=== PATIENT | female | born 1960 | race Caucasian/White ===

== ENCOUNTER 2019-01-05 10:54 | Inpatient (IN) | payer MEDICARE, OTHER ==
--- NOTE | 2019-01-05 11:49 | RAD ---
RIGHT KNEE 4 VIEWS: Date: 01/05/19 HISTORY: Right knee pain. Fall. FINDINGS/IMPRESSION: Degenerative changes are present. No fracture or dislocation is seen involving the visualized portion s of the femur, tibia, and fibula. The patella on the lateral view is not satisfactorily visualized. POS: [facility]
--- NOTE | 2019-01-05 12:21 | RAD ---
RIGHT HIP TWO VIEWS: History: Fall. Right hip injury. FINDINGS: Joint space is preserved. Slight flattening of the femoral head. Subcortical sclerosis of the acetabu lum. Ring osteophyte of the femoral head. No acute fracture, dislocation, or aggressive osseous erosi ons. IMPRESSION: Degenerative changes right hip. No acute osseous abnormalities are demonstrated. POS: [facility]
[2019-01-05] MEDS ORDERED: Ketorolac Tromethamine 30 MG/ML VIAL ONE (12:32)
--- NOTE | 2019-01-05 14:13 | RAD ---
3 VIEWS RIGHT FORELEG: Date: 01/05/19 INDICATION: Fall with right knee pain. FINDINGS: There is a spiral fracture involving the distal tibia and fibula. No additional fracture is evident. IMPRESSION: Spiral fracture of the distal tibia and fibula. Dedicated right ankle radiographs are recommended. POS: [facility]
--- NOTE | 2019-01-05 15:07 | CT ---
CT PELVIS NONCONTRAST: Date: 01/05/19 Time: 1406 hours HISTORY: 58-year-old female with traumatic pelvic pain after fall. FINDINGS: There is no evidence of acute fracture. No dislocation. Moderate DJD at right hip joint. Mild DJD at left hip joint. Bilateral facet DJD at lower lumbar spine. No intrapelvic free fluid or extrapelvic h ematoma. IMPRESSION: 1. No evidence of acute fracture. 2. Moderate osteoarthrosis of the right hip. 3. Lower lumbar spondylosis consisting of facet osteoarthrosis, and bilateral neural foraminal steno sis at L4-5. POS: [facility]
--- NOTE | 2019-01-05 15:46 | RAD ---
RADIOGRAPH RIGHT ANKLE 3 VIEWS: Date; 01/05/19 Time: 1511 hours HISTORY: 58-year-old female status post acute traumatic injury to the ankle after fall. FINDINGS: There is a mildly comminuted spiral fracture of the distal tibia, from the distal diaphysis through t he metaphysis, with mild, approximately 10-15% bone width posterolateral displacement of the distal f ragment. It does not reach the tibial plafond. There is a nondisplaced spiral fracture of the distal fibular metaphysis. There is no dislocation or subluxation of the tibiotalar joint. Talar dome is mariann ntained. IMPRESSION: 1. Acute, traumatic, mildly displaced, spiral, comminuted fracture of the distal tibial metadiaphysi s. 2. Acute, traumatic, nondisplaced Erazo Class B fracture of the lateral malleolus. POS: [facility]
[2019-01-05 16:07] LABS: #Basophils 0.1 thou/uL (0.0-0.2); #Lymphocytes 1.3 thou/uL (1.20-3.40); #Monocytes 0.6 thou/uL (0.11-0.59); %Basophils 0.7 % (0.0-1.0); %Eosinophils 0.1 % (0.0-10.0); %Lymphocytes 9.2 % (21.0-51.0); %Monocytes 4.2 % (0.0-10.0); %Neutrophils 85.8 % (42.0-75.0); Hemoglobin 14.9 g/dL (12.0-16.0); Mean Corpuscular HGB CONC 32.8 g/dL (32.0-36.0); Mean Corpuscular Hemoglobin 33.1 pg (27.0-31.0); Mean Platelet Volume 6.7 fL (7.4-10.4); Platelet Count 414 thou/uL (130-400); RBC Distribution Width 12.7 % (11.5-14.5); Red Blood Cell (RBC) Count 4.49 mill/uL (4.20-5.40)
[2019-01-05 16:28] LABS: ALT (SGPT) 26 U/L (8-55); AST (SGOT) 40 U/L (5-34); Albumin 3.9 g/dL (3.5-5.0); Alkaline Phosphatase 92 U/L (40-150); Anion Gap 16 mmol/L (10-20); BUN (Urea Nitrogen) 8 mg/dL (9.8-20.1); Bilirubin, Total 0.4 mg/dL (0.2-1.2); Calc. Creatinine Clearance 0 mL/min (70-130); Calcium 9.6 mg/dL (7.8-10.44); Carbon Dioxide 24 mmol/L (22-29); Chloride 102 mmol/L (98-107); Estimated GFR-MDRD 78; Globulin 3.9 g/dL (2.4-3.5); Glucose 101 mg/dL (70-105); Potassium 4.9 mmol/L (3.5-5.1); Protein, Total 7.8 g/dL (6.0-8.3); Sodium 137 mmol/L (136-145)
[2019-01-05] MEDS ORDERED: Ondansetron ODT 4 MG TAB PO PRN (16:49)
[2019-01-05] MEDS ORDERED: Dextrose 50% Abboject 50 ML SYRINGE SLOW IVP PRN (16:49)
[2019-01-05] MEDS ORDERED: Morphine 4 MG/ML VIAL SLOW IVP PRN (16:49)
[2019-01-05] MEDS ORDERED: Ondansetron PF 4 MG/2 ML Vial IVP PRN (16:49)
[2019-01-05] MEDS ORDERED: Dextrose 5% in Water 1,000 ML IV PRN (16:49)
[2019-01-05] MEDS ORDERED: hydrALAZINE 20 MG/ML VIAL SLOW IVP PRN (16:49)
[2019-01-05] MEDS ORDERED: traMADol HCl 50 MG TAB PO PRN (16:59)
--- NOTE | 2019-01-05 17:55 | HP ---
HISTORY OF PRESENT ILLNESS: This is a 58-year-old female who was walking outside with her sister when she stepped in a hole and fell. The patient was taken by ambulance to the emergency room, was evaluated to have a right spiral tib-fib fracture. The patient had no loss of consciousness. Denied any other injuries. The patient with severe dementia history and Down syndrome history. Has been living with her sister who cares for her. Sister states that the patient has cognitive ability of approximately 2-year-old. The patient denies getting weak, dizzy, or having chest pain prior to falling. Initially, the patient complained of right hip pain and right knee pain. Dr. Tyler, ER physician requested Trauma Services to admit the patient. Dr. Mac has been consulted and plans to take the patient to the OR tomorrow around noon. PAST MEDICAL HISTORY: Dementia, Down syndrome, sick sinus syndrome with pacemaker, epilepsy. PAST SURGICAL HISTORY: Pacemaker and cataract surgery. SOCIAL HISTORY: Denies alcohol, drug use, or smoking history. ALLERGIES: CIPRO. CURRENT MEDICATIONS: Sister reports CBT which has kept her seizure-free. Melatonin at night. REVIEW OF SYSTEMS: Ten-point review of systems is negative unless otherwise stated in the HPI. PHYSICAL EXAMINATION: VITAL SIGNS: Temperature 98.0, respirations 16, blood pressure 116/79, pulse 63 , and SpO2 of 96% on room air. GENERAL: The patient is awake, alert, appears in no distress. HEENT: Head is normocephalic and atraumatic. NECK: Normal range of motion. Trachea midline. No cervical tenderness. RESPIRATORY: No respiratory distress. Bilateral breath sounds clear. Symmetrical chest rise. CARDIOVASCULAR: Regular rate and rhythm. No murmurs noted. ABDOMEN: Soft, nontender, nondistended. Active bowel sounds. NEUROLOGIC: Oriented to person and place. No focal deficits. EXTREMITIES: Splint right leg, distal pules bilateral. No pedal edema. LABORATORY DATA: WBC 14.0, RBC 4.49, hemoglobin 14.9, hematocrit 45.2, platelets 414. Sodium 137, potassium 4.9, chloride 102, carbon dioxide 24, BUN 8, creatinine 0.76, estimated GFR 78, glucose 101, calcium 9.6, AST 40, ALT 26, alkaline phosphatase 92, globulin 3.9, ratio 1.0. DIAGNOSTICS: X-ray tib-fib shows spiral fracture in distal tibia and fibula. Knee x-ray, no fracture or dislocation. Positive for degenerative changes. Pelvis CT, no evidence of acute fracture. IMPRESSION: 1. Ground level fall. 2. Right distal spiral tib-fib fracture. 3. Acute traumatic pain. 4. History of dementia. 5. History of epilepsy. 6. History of Down syndrome. PLAN: Admit the patient to the surgical ortho floor. Place the patient n.p.o. after midnight. We will control the patient's pain. We will order a rehab screen as the patient will need skilled rehab. PT to eval and treat after OR. This patient will be discussed with the attending trauma surgeon after this dictation. Job ID: [id number] [facility]
[2019-01-05 18:18] VITALS: BMI 26.5
[2019-01-05] MEDS: Ibuprofen 600 MG TAB PO SCH ×2 (18:47→23:12)
[2019-01-05] MEDS: Acetaminophen 325 MG TAB PO SCH ×2 (18:47→23:12)
[2019-01-05] MEDS: Melatonin 3 MG TAB PO SCH (20:39)
[2019-01-05] MEDS: Sodium Chloride 0.9% 1,000 ML IV SCH (20:40)
[2019-01-05] MEDS: Famotidine/PF 20 mg/2ml Vial SLOW IVP SCH (20:45)
--- NOTE | 2019-01-05 20:47 | PRG ---
DATE OF SERVICE: 01/05/2019 SUBJECTIVE: Ms. Tapia is a 58-year-old woman with history of Down syndrome. The patient apparently fell from ground level position earlier today, sustaining a right distal tib-fib spiral fracture. She is awake and alert. Her adult sister is at bedside. The patient denies any problems. Pain control is adequate as confirmed by her sister. She just finished her dinner. OBJECTIVE: VITAL SIGNS: Vital signs currently includes blood pressure 125/62, pulse 70, respiratory rate is 18, temperature 97.4 degrees Fahrenheit, and oxygen saturation 100% on room air. ASSESSMENT AND PLAN: I have reviewed the history and physical as recorded by Maddy Lee, trauma nurse practitioner. I agree with the findings and plan for today. The patient is certainly hemodynamically stable to proceed with Orthopedic Surgery tomorrow for surgical fixation of this spiral fracture. Chemical VTE prophylaxis will be initiated following completion of surgery tomorrow. Job ID: [id number]
[2019-01-06] MEDS ORDERED: Ketorolac Tromethamine 15 MG/ML VIAL IVP PRN (00:01)
[2019-01-06 07:01] LABS: #Basophils 0.1 thou/uL (0.0-0.2); #Lymphocytes 1.5 thou/uL (1.20-3.40); #Monocytes 0.5 thou/uL (0.11-0.59); #Neutrophils 3.3 thou/uL (1.40-6.50); %Basophils 1.1 % (0.0-1.0); %Eosinophils 0.6 % (0.0-10.0); %Monocytes 8.7 % (0.0-10.0); %Neutrophils 61.6 % (42.0-75.0); Hemoglobin 13.3 g/dL (12.0-16.0); Mean Corpuscular HGB CONC 33.4 g/dL (32.0-36.0); Mean Corpuscular Hemoglobin 33.9 pg (27.0-31.0); Mean Platelet Volume 6.4 fL (7.4-10.4); Platelet Count 305 thou/uL (130-400); RBC Distribution Width 12.6 % (11.5-14.5); Red Blood Cell (RBC) Count 3.92 mill/uL (4.20-5.40); White Blood Cell (WBC) Count 5.4 thou/uL (4.8-10.8)
[2019-01-06 07:15] LABS: ALT (SGPT) 17 U/L (8-55); AST (SGOT) 21 U/L (5-34); Albumin 3.5 g/dL (3.5-5.0); Alkaline Phosphatase 80 U/L (40-150); Anion Gap 12 mmol/L (10-20); BUN (Urea Nitrogen) 9 mg/dL (9.8-20.1); Bilirubin, Total 0.6 mg/dL (0.2-1.2); Calc. Creatinine Clearance 68 mL/min (70-130); Calcium 8.9 mg/dL (7.8-10.44); Carbon Dioxide 25 mmol/L (22-29); Chloride 102 mmol/L (98-107); Estimated GFR-MDRD 77; Globulin 2.8 g/dL (2.4-3.5); Glucose 112 mg/dL (70-105); Potassium 3.7 mmol/L (3.5-5.1); Protein, Total 6.3 g/dL (6.0-8.3); Sodium 135 mmol/L (136-145)
[2019-01-06] MEDS: Polyethylene Glycol 3350 17 GM Packet PO SCH (07:26)
[2019-01-06] MEDS: Sodium Chloride 0.9% 1,000 ML IV SCH ×2 (07:26→20:36)
[2019-01-06] MEDS ORDERED: CEFAZOLIN 2 GM/50 ML-DEXTROSE 2 GM in Premix Bag 1 BAG IVPB SCH (07:30)
[2019-01-06] MEDS ORDERED: CEFAZOLIN/Water 2 GM/20 ML SYRINGE SLOW IVP SCH ×2 (07:30→15:49)
[2019-01-06] MEDS: Famotidine/PF 20 mg/2ml Vial SLOW IVP SCH ×2 (08:54→21:09)
[2019-01-06] MEDS ORDERED: Potassium Chloride 10 MEQ in Premix Bag 1 BAG IVPB SCH (09:15)
[2019-01-06 09:49] LABS: Magnesium 1.9 mg/dL (1.6-2.6); Phosphorus 3.8 mg/dL (2.3-4.7)
[2019-01-06] MEDS: Acetaminophen 325 MG TAB PO SCH ×2 (11:15→17:09)
[2019-01-06] MEDS ORDERED: CEFAZOLIN 2 GM/50 ML BAG ONE (11:33)
[2019-01-06] MEDS ORDERED: Scopolamine 1.5 mg/72 hour Patch ONE (11:48)
[2019-01-06] MEDS ORDERED: Fentanyl 100 MCG/2 ML VIAL ONE ×2 (12:01→15:05)
[2019-01-06] MEDS ORDERED: PHENYLEPHRINE-NS 100 MCG/ML 10 ML SYRINGE ONE (13:15)
[2019-01-06] MEDS ORDERED: Dexamethasone 20 MG/5 ML VIAL ONE (13:15)
[2019-01-06] MEDS ORDERED: PROPOFOL 200 MG/20 ML VIAL ONE (13:15)
[2019-01-06] MEDS ORDERED: Ondansetron PF 4 MG/2 ML Vial ONE (13:15)
[2019-01-06] MEDS: Ibuprofen 600 MG TAB PO SCH ×2 (13:36→21:09)
--- NOTE | 2019-01-06 15:42 | RAD ---
RIGHT FORELEG 2 VIEWS: HISTORY: ORIF of right leg. FINDINGS: Since the comparison examination, there has been interval open reduction internal fixation of the dis jennifer tibia and fibula fractures. Fracture alignment is near anatomic. Instrumentation projects in th e expected position. IMPRESSION: Open reduction internal fixation of the right distal tibia and fibula fracture. POS: [facility]
[2019-01-06] MEDS ORDERED: Ketorolac Tromethamine 30 MG/ML VIAL IVP PRN (17:30)
[2019-01-06] MEDS ORDERED: Sodium Chloride 0.9% 1,000 ML IV SCH (17:45)
[2019-01-06] MEDS ORDERED: traMADol HCl 50 MG TAB PO SCH (18:00)
[2019-01-06] MEDS: Melatonin 3 MG TAB PO SCH (21:08)
[2019-01-06] MEDS: Senokot S 8.6-50 MG TAB PO SCH (21:09)
[2019-01-06] MEDS: CEFAZOLIN 2 GM/50 ML-DEXTROSE 2 GM in Premix Bag 1 BAG IVPB SCH (21:09)
[2019-01-06] MEDS: Magnesium Oxide 400 MG TAB PO SCH (21:09)
--- NOTE | 2019-01-06 21:33 | OP ---
DATE OF PROCEDURE: 01/06/2019 PREOPERATIVE DIAGNOSES: 1. Right distal tibia fracture. 2. Right distal fibular fracture. POSTOPERATIVE DIAGNOSES: 1. Right distal tibia fracture. 2. Right distal fibular fracture. PROCEDURES: 1. Open reduction and internal fixation, right distal tibia. 2. Percutaneous screw stabilization of right distal fibula. ANESTHESIA: General. ACADEMIC SUPPORT DIRECTOR: Sea. TOURNIQUET TIME: 61 minutes at 300 mmHg. IMPLANT: Synthes system was used with a 6 hole 2.7/3.5 mm variable angle LCP distal medial tibial plate with a combination of 2.7 mm variable angle locking screws, 3.5 mm cortical screws and a single 4.0 mm cortical screw for the fibula. COMPLICATIONS: None. DRAINS: None. SPECIMEN: None. OUTCOME: Near-anatomic alignment. INDICATIONS: The patient is a pleasant 58-year-old lady with Down syndrome, who was walking in the field with her sister when she tripped and fell, sustained a twisting injury to the right lower extremity. X-rays in the emergency room demonstrated an oblique fracture of the distal tibia with some displacement and a nondisplaced oblique fracture of the distal fibula. After discussion with family including risks and benefits, we decided to proceed with open reduction and internal fixation. Informed consent has been obtained. I believe all questions answered. DESCRIPTION OF PROCEDURE: The patient was brought to the operating room and a time-out performed followed by induction of general anesthesia. The patient was then positioned supine on the OR table and a sterile prep and drape was performed of the right lower extremity. The limb was then exsanguinated with Esmarch bandage, tourniquet inflated to 300 mmHg. Next, a vertical incision was made from the tip of the medial malleolus proximally. After skin was sharply incised, dissection was carried down bluntly. The saphenous vein was identified and reflected anteriorly. Next, using minimal subperiosteal dissection, the fracture extension to the medial side of the tibia was identified. This was then reduced manually. A 6 hole 2.7/3.5 variable angle distal medial tibial plate was then inserted into the wound. Once appropriately positioned, it was stabilized with a single 3.5 mm cortical screw in the shaft of the plate proximal to the fracture. This was then followed by placement of 4 locking screws in the distal tibial metaphysis. An additional 3.5 mm screw was passed longitudinally across the fracture into the lateral fragment of the fracture and then additional cortical screws were placed proximally stabilizing the plate to the shaft. At this time, AP, lateral and mortise views of the ankle showed near anatomical alignment. The distal fibula was essentially nondisplaced and as such, we opted to proceed with intramedullary screw stabilization of this fracture. Using C-arm guidance, a small stab wound was made distal to the tip of the lateral malleolus. Next, a drill was passed from this tip of the lateral malleolus up the shaft without difficulty. Next, a 16-mm screw was passed from the starting hole up into the distal fibular shaft, getting good compression across the fracture. At the completion of this, final x-ray images of the ankle were obtained. The wounds were irrigated with bulb syringe, then closed in layers with 0 Vicryl, deep 2-0 Vicryl, and nylon for the skin. Xeroform gauze, Webril, and fiberglass splint was applied to the leg. Tourniquet was let down with total time of 61 minutes. The patient was transferred to recovery room in stable condition. There were no complications. She tolerated the procedure well. Job ID: [id number]
--- NOTE | 2019-01-06 21:48 | CON ---
DATE OF CONSULTATION: BRIEF HISTORY OF PRESENT ILLNESS: The patient is a 58-year-old female with history of Down syndrome, who was walking in the field with her sister when she stepped in a hole, fell and twisted her right ankle. Upon evaluation in the emergency department, she was found to have an oblique fracture of the distal tibia with fracture of the distal fibula as well. There was no loss of consciousness and no other injuries. As such, Orthopedic consultation was requested. The patient being admitted to the Trauma Service. PAST MEDICAL HISTORY: Remarkable for Down syndrome, sick sinus syndrome, and epilepsy. PAST SURGICAL HISTORY: Includes pacemaker placement as well as cataract surgery. SOCIAL HISTORY: Denies alcohol, drug use, or cigarettes. MEDICATIONS: Melatonin at night for sleep. ALLERGIES: TO CIPROFLOXACIN. FAMILY HISTORY: Noncontributory. REVIEW OF SYSTEMS: Denies recent fevers, chills, or sweats. Denies chest pain or shortness of breath. Denies numbness or tingling in the lower extremity. PHYSICAL EXAMINATION: VITAL SIGNS: On admission in the emergency room, the patient was found to have a blood pressure of 94/72, heart rate of 60, respiratory rate of 16, and temperature 98.1 degrees Fahrenheit. GENERAL: She is in mild distress, but otherwise lying still in her emergency room bed with her sister at bedside. HEENT: Atraumatic and normocephalic. NECK: Supple. HEART: Shows a regular rate and rhythm with no murmurs noted. CHEST: Clear to auscultation with good breath sounds bilaterally. ABDOMEN: Benign. PELVIS: Stable. EXTREMITIES: Remarkable for bilateral upper extremities. They are atraumatic. Left lower extremity also atraumatic. Right lower extremity with a short-leg splint in place. She has pain to palpation at the distal tibia. She is wiggling her toes and appears to have normal sensation dorsally and on the plantar surface of the foot. The knee and hip appear atraumatic on this involved right side. LABORATORY DATA: White count of 16, hematocrit 45.2, and 414,000 platelets. X-RAYS: Right knee x-ray normal. Right hip x-ray normal. AP pelvis negative. Right tib-fib remarkable for a distal tibia fracture with an oblique and mild spiral component to it extending down to the very distal end of the tibial metaphysis but not entering the joint and there was found to be a minimally if not nondisplaced fracture of the distal fibula. Followup ankle x-rays confirmed the above findings. ASSESSMENT: The patient is a 58-year-old lady with Down syndrome, status post ground level trip and fall sustaining a distal tibia fracture with nondisplaced lateral malleolus. PLAN: At this time, the patient will be admitted to the Trauma Service. We will keep her n.p.o. after midnight with plans to take her to the operating room tomorrow for open reduction and internal fixation of the distal tibia and probable stabilization of the fibula as well. Today, risks and benefits were discussed with the patient's sister. Risks include, but are not limited to bleeding, infection, nerve injury, DVT, PE, malunion, nonunion, loss of fixation, loss of limb or life. They appear to understand and do wish to proceed. Consent will be obtained prior to surgery. Job ID: [id number]
[2019-01-07] MEDS: Acetaminophen 325 MG TAB PO SCH ×5 (00:04→22:52)
[2019-01-07] MEDS ORDERED: Potassium Chloride 10 MEQ in Premix Bag 1 BAG IVPB SCH ×2 (00:30→01:00)
[2019-01-07] MEDS ORDERED: Potassium Chloride 20 MEQ in Premix Bag 1 BAG IVPB SCH (01:30)
--- NOTE | 2019-01-07 03:56 | PRG ---
DATE OF SERVICE: 01/06/2019 SUBJECTIVE: This is a 58-year-old female status post ground-level fall. The patient is postop day #0 for repair of right distal spiral tib-fib fracture. The patient just returned from PACU. The patient's sister is at bedside. The patient does not appear to be in any pain at this time. The patient with limited verbal response at this time and appears slightly anxious. Nursing staff and sister reassuring patient. OBJECTIVE: VITAL SIGNS: Temperature 97.8, pulse 64, respirations 12, SpO2 of 99% on room air, blood pressure 111/68. GENERAL: The patient is awake, alert, follows some simple commands. No distress at this time. HEENT: Head is atraumatic and normocephalic. RESPIRATORY: Bilateral breath sounds clear. No respiratory distress. Symmetrical chest rise. CARDIOVASCULAR: Regular rate and rhythm. EXTREMITIES: The patient with a posterior leg splint to the right. The patient moves all extremities. LABORATORY DATA: WBC 5.4, RBC 3.92, hemoglobin 13.3, hematocrit 39.8, platelets 305. Sodium 135, potassium 3.7, chloride 102, BUN 9, creatinine 0.77, estimated GFR 77, glucose 112, calcium 8.9, phosphorus 3.8, magnesium 1.9, AST 21, ALT 17. DIAGNOSTICS: Tib-fib x-ray impression; open reduction internal fixation of the right distal tibia and fibula fracture. IMPRESSION: 1. Ground-level fall. 2. Postoperative day #0, open reduction external fixation right distal tibia fibula. 3. Acute traumatic pain. 4. History of dementia. 5. History of epilepsy. 6. History of Down syndrome. PLAN: We will start the patient on clear liquids and place the patient on a pain regimen. We will discontinue tramadol as it can increase the seizure threshold. Rehab screen and PT has been consulted. We will replace the patient's electrolytes. We will keep the patient on a low maintenance IV fluid overnight. We will repeat labs in the morning. Soft mittens on hands to prevent patient from pulling out IV. The patient has been discussed with Dr. Govea, who agrees with the plan. Job ID: [id number] [facility]
[2019-01-07] MEDS: CEFAZOLIN 2 GM/50 ML-DEXTROSE 2 GM in Premix Bag 1 BAG IVPB SCH ×2 (05:55→11:44)
[2019-01-07] MEDS: Ibuprofen 600 MG TAB PO SCH ×3 (06:01→22:52)
[2019-01-07 06:37] LABS: #Lymphocytes 1.3 thou/uL (1.20-3.40); #Monocytes 0.5 thou/uL (0.11-0.59); #Neutrophils 8.2 thou/uL (1.40-6.50); %Basophils 0.2 % (0.0-1.0); %Eosinophils 0.1 % (0.0-10.0); %Monocytes 5.2 % (0.0-10.0); %Neutrophils 81.5 % (42.0-75.0); Hemoglobin 13.2 g/dL (12.0-16.0); Mean Corpuscular HGB CONC 33.3 g/dL (32.0-36.0); Mean Corpuscular Hemoglobin 33.7 pg (27.0-31.0); Mean Platelet Volume 6.5 fL (7.4-10.4); Platelet Count 335 thou/uL (130-400); RBC Distribution Width 12.7 % (11.5-14.5); Red Blood Cell (RBC) Count 3.92 mill/uL (4.20-5.40); White Blood Cell (WBC) Count 10.1 thou/uL (4.8-10.8)
[2019-01-07 06:50] LABS: ALT (SGPT) 15 U/L (8-55); AST (SGOT) 20 U/L (5-34); Albumin 3.6 g/dL (3.5-5.0); Alkaline Phosphatase 75 U/L (40-150); Anion Gap 10 mmol/L (10-20); BUN (Urea Nitrogen) 6 mg/dL (9.8-20.1); Bilirubin, Total 0.5 mg/dL (0.2-1.2); Calc. Creatinine Clearance 63 mL/min (70-130); Calcium 9.1 mg/dL (7.8-10.44); Carbon Dioxide 25 mmol/L (22-29); Chloride 104 mmol/L (98-107); Estimated GFR-MDRD 72; Globulin 2.9 g/dL (2.4-3.5); Glucose 111 mg/dL (70-105); Magnesium 1.7 mg/dL (1.6-2.6); Potassium 4.4 mmol/L (3.5-5.1); Protein, Total 6.5 g/dL (6.0-8.3); Sodium 135 mmol/L (136-145)
[2019-01-07 06:53] LABS: Phosphorus 2.8 mg/dL (2.3-4.7)
[2019-01-07] MEDS ORDERED: Aspirin 81 mg Enteric Coated Tablet PO SCH (09:00)
[2019-01-07] MEDS: Famotidine/PF 20 mg/2ml Vial SLOW IVP SCH (09:00)
[2019-01-07] MEDS: Senokot S 8.6-50 MG TAB PO SCH ×2 (09:00→20:10)
[2019-01-07] MEDS: Polyethylene Glycol 3350 17 GM Packet PO SCH (09:00)
[2019-01-07] MEDS: Aspirin 81 mg Enteric Coated Tablet PO SCH ×2 (09:00→20:10)
[2019-01-07] MEDS: Magnesium Oxide 400 MG TAB PO SCH ×2 (09:00→20:10)
--- NOTE | 2019-01-07 09:02 | EKG ---
Test Reason : PREOP Blood Pressure : / mmHG Vent. Rate : 060 BPM Atrial Rate : 060 BPM P-R Int : 142 ms QRS Dur : 092 ms QT Int : 460 ms P-R-T Axes : 090 062 058 degrees QTc Int : 460 ms Electronic atrial pacemaker RSR' or QR pattern in V1 suggests right ventricular conduction delay Borderline ECG No previous ECGs available Confirmed by DR. Ally RAM ([id number]) on 01/07/2019 9:02:14 AM Referred By: DEJUAN Confirmed By:DR. Alyl RAM
--- NOTE | 2019-01-07 15:00 | PRG ---
DATE OF SERVICE: 01/07/2019 SUBJECTIVE: The patient was seen this morning lying in bed, was just waking up this morning. Family at bedside reported the patient's pain was better controlled and was able to sleep later on during the night. She has been on a regular diet and has been tolerating that well. Denies nausea, vomiting, diarrhea. Nursing did report that the patient received nearly double the amount of potassium ordered yesterday due to a documentation error. Morning labs indicate potassium within normal limits. Otherwise, no acute overnight events. PHYSICAL EXAMINATION: VITAL SIGNS: Temperature 97.9, pulse 60, respirations 12, oxygen saturation 98% on room air, blood pressure 117/77. GENERAL: Alert and well-appearing middle-aged female, lying in bed with no acute signs of distress. NEURO: Alert and oriented at baseline. Gross motor and sensation intact. Pupils equal, round, reactive to light. PULMONARY: No signs of acute distress. Equal chest rise and fall. Lung ramirez clear bilaterally. HEART: Regular rate and rhythm. No murmurs, gallops, or rubs. GI: Abdomen is soft, nontender, nondistended with positive bowel sounds. EXTREMITIES: Gross motor and sensation intact in all 4 extremities. 2+ pulses in all 4 extremities. No swelling noted. Surgical dressing to right lower extremity clean, dry, and intact. LABORATORY FINDINGS: White count 11.1, hemoglobin 13.2, hematocrit 39.7, platelets 335. Sodium 135, potassium 4.4, chloride 104, carbon dioxide 25, BUN 6, creatinine 0.82, glucose 111, phos 2.8, magnesium 1.7. DIAGNOSTIC FINDINGS: There are no diagnostic findings to report. ASSESSMENT: 1. Status post mechanical fall from standing. 2. Right tib-fib fracture. 3. Hypophosphatemia. 4. Hypomagnesemia. 5. Hyponatremia. 6. Acute traumatic pain. PLAN: The patient will receive a repeat serum sodium lab draw this afternoon at 3:00 p.m. We will discontinue normal saline and monitor hyponatremia for now. We will replace magnesium and phosphorus today. We will continue pain management with Tylenol and ibuprofen. The patient's family at bedside reports she is more at her baseline mentation today than previously was. We will continue with a regular diet. Aspirin 81 mg b.i.d. for DVT prophylaxis as well as SCDs. We will continue physical and occupational therapy today. The patient was seen and examined by Dr. Govea and I today during morning rounds. Job ID: [id number]
[2019-01-07] MEDS: Melatonin 3 MG TAB PO SCH (20:09)
[2019-01-07] MEDS: Famotidine 20 MG TAB PO SCH (20:09)
[2019-01-08 04:45] LABS: #Basophils 0.1 thou/uL (0.0-0.2); #Eosinphils 0.1 thou/uL (0.0-0.7); #Lymphocytes 1.7 thou/uL (1.20-3.40); #Monocytes 0.6 thou/uL (0.11-0.59); #Neutrophils 3.5 thou/uL (1.40-6.50); %Basophils 1.3 % (0.0-1.0); %Eosinophils 0.9 % (0.0-10.0); %Lymphocytes 28.1 % (21.0-51.0); %Monocytes 10.7 % (0.0-10.0); Hemoglobin 12.2 g/dL (12.0-16.0); Mean Corpuscular Hemoglobin 33.5 pg (27.0-31.0); Mean Platelet Volume 6.4 fL (7.4-10.4); Platelet Count 288 thou/uL (130-400); RBC Distribution Width 12.5 % (11.5-14.5); Red Blood Cell (RBC) Count 3.63 mill/uL (4.20-5.40); White Blood Cell (WBC) Count 5.9 thou/uL (4.8-10.8)
[2019-01-08 04:59] LABS: Anion Gap 11 mmol/L (10-20); BUN (Urea Nitrogen) 10 mg/dL (9.8-20.1); Calc. Creatinine Clearance 74 mL/min (70-130); Calcium 8.5 mg/dL (7.8-10.44); Carbon Dioxide 26 mmol/L (22-29); Chloride 101 mmol/L (98-107); Estimated GFR-MDRD 86; Glucose 106 mg/dL (70-105); Phosphorus 2.9 mg/dL (2.3-4.7); Sodium 134 mmol/L (136-145)
[2019-01-08] MEDS: Ibuprofen 600 MG TAB PO SCH ×3 (07:28→17:50)
[2019-01-08] MEDS: Acetaminophen 325 MG TAB PO SCH ×4 (07:28→23:19)
[2019-01-08] MEDS: Polyethylene Glycol 3350 17 GM Packet PO SCH (09:38)
[2019-01-08] MEDS: Aspirin 81 mg Enteric Coated Tablet PO SCH ×2 (09:39→20:49)
[2019-01-08] MEDS: Senokot S 8.6-50 MG TAB PO SCH ×2 (09:39→20:50)
[2019-01-08] MEDS: Magnesium Oxide 400 MG TAB PO SCH (09:40)
[2019-01-08] MEDS: Famotidine 20 MG TAB PO SCH ×2 (09:40→20:50)
[2019-01-08] MEDS ORDERED: Sodium Phosphate 15 MMOL in Sodium Chloride 0.9% 250 ML 250 ML IVPB SCH (11:00)
--- NOTE | 2019-01-08 12:03 | PRG ---
DATE OF SERVICE: 01/08/2019 SUBJECTIVE: The patient was seen this morning, lying in bed, with family at bedside. She was just starting to wake up during our evaluation. Family reported the patient was much less agitated today and was tolerating a regular diet. Pain was well controlled. Has not had a bowel movement yet, but has been urinating without difficulties. Denies nausea, vomiting, or diarrhea. PHYSICAL EXAMINATION: VITAL SIGNS: Temperature 97.6, pulse 61, respirations 14, oxygen saturation 99% on room air, and blood pressure 117/76. GENERAL: Alert and well-appearing middle-aged female, lying in bed, with no signs of acute distress. NEUROLOGIC: Alert and oriented at baseline. Gross motor and sensation intact. Pupils equal, round, and reactive to light. PULMONARY: No signs of acute distress. Equal chest rise and fall. Lung ramirez clear bilaterally. HEART: Regular rate and rhythm. No murmurs, gallops, or rubs. GI: Abdomen is soft, nontender, and nondistended with positive bowel sounds. EXTREMITIES: Gross motor and sensation intact in all 4 extremities, 2+ pulses in all extremities. No swelling noted. Surgical dressing to right lower extremity clean, dry, and intact. LABORATORY FINDINGS: White blood cell count 5.9, hemoglobin 12.2, hematocrit 36.8, and platelets 228. Sodium 134, potassium 4.0, chloride 101, carbon dioxide 26, BUN 10, creatinine 0.70, and glucose 106. Phos 2.9. Magnesium 2.0. DIAGNOSTIC FINDINGS: There are no diagnostic findings to report. ASSESSMENT: 1. Status post mechanical fall from standing. 2. Right tib-fib fracture status post repair. 3. Hypophosphatemia. 4. Constipation. 5. Hyponatremia. 6. Acute traumatic pain. PLAN: The patient will receive sodium phos replacement today for hyponatremia. We will continue current pain regimen as the patient appears to have better pain control than yesterday. If she does not have a bowel movement by tomorrow, we will order a suppository at that time. Family at bedside reports that she is much less agitated and mentation is at baseline. We will continue physical and occupational therapy as well as supportive care. The patient was seen and examined by Dr. Govea and Norma today during morning rounds. Job ID: [id number]
[2019-01-08] MEDS: Melatonin 3 MG TAB PO SCH (20:49)
[2019-01-09] MEDS ORDERED: Bisacodyl 10 MG SUPP PR SCH (07:15)
[2019-01-09 08:00] LABS: #Basophils 0.1 thou/uL (0.0-0.2); #Eosinphils 0.1 thou/uL (0.0-0.7); #Lymphocytes 1.3 thou/uL (1.20-3.40); #Monocytes 0.5 thou/uL (0.11-0.59); #Neutrophils 2.3 thou/uL (1.40-6.50); %Basophils 1.4 % (0.0-1.0); %Eosinophils 2.7 % (0.0-10.0); %Lymphocytes 30.3 % (21.0-51.0); %Neutrophils 53.5 % (42.0-75.0); Hemoglobin 12.9 g/dL (12.0-16.0); Mean Corpuscular HGB CONC 33.1 g/dL (32.0-36.0); Mean Corpuscular Hemoglobin 33.5 pg (27.0-31.0); Mean Platelet Volume 6.6 fL (7.4-10.4); Platelet Count 315 thou/uL (130-400); RBC Distribution Width 12.4 % (11.5-14.5); Red Blood Cell (RBC) Count 3.85 mill/uL (4.20-5.40); White Blood Cell (WBC) Count 4.2 thou/uL (4.8-10.8)
[2019-01-09 08:24] LABS: Anion Gap 12 mmol/L (10-20); BUN (Urea Nitrogen) 8 mg/dL (9.8-20.1); Calc. Creatinine Clearance 80 mL/min (70-130); Calcium 8.8 mg/dL (7.8-10.44); Carbon Dioxide 25 mmol/L (22-29); Chloride 101 mmol/L (98-107); Estimated GFR-MDRD Greater than 90; Glucose 100 mg/dL (70-105); Phosphorus 3.2 mg/dL (2.3-4.7); Sodium 134 mmol/L (136-145)
[2019-01-09] MEDS: Acetaminophen 325 MG TAB PO PRN ×2 (11:43→16:12)
[2019-01-09] MEDS: Ibuprofen 600 MG TAB PO PRN ×2 (11:43→20:41)
[2019-01-09] MEDS: Famotidine 20 MG TAB PO SCH ×2 (11:43→20:29)
[2019-01-09] MEDS: Aspirin 81 mg Enteric Coated Tablet PO SCH ×2 (11:43→20:29)
[2019-01-09] MEDS: Polyethylene Glycol 3350 17 GM Packet PO SCH (11:48)
[2019-01-09] MEDS: Senokot S 8.6-50 MG TAB PO SCH ×2 (11:48→20:49)
--- NOTE | 2019-01-09 16:07 | PRG ---
DATE OF SERVICE: 01/09/2019 SUBJECTIVE: The patient was seen this morning sitting up in a chair. Family at bedside reported the patient slept very well last night and mentation is at baseline. A suppository was given this morning and the patient had large bowel movement. She is also voiding without difficulty. Her pain is well controlled on p.r.n. Tylenol and ibuprofen. OBJECTIVE: VITAL SIGNS: Temperature 97.1, pulse 68, respirations 20, oxygen saturation 99% on room air, and blood pressure 124/76. GENERAL: Alert and well-appearing middle-aged female, sitting up in chair with no signs of acute distress. NEUROLOGIC: Alert and oriented at baseline, gross motor sensation intact. Pupils equal, round, and reactive to light. PULMONARY: No signs of acute distress. Equal chest rise and fall. Lung ramirez clear bilaterally. HEART: Regular rate and rhythm. No murmurs, gallops, or rubs. GI: Abdomen is soft, nontender, and nondistended with positive bowel sounds. EXTREMITIES: Gross motor and sensation intact in all 4 extremities. 2+ pulses in all extremities. No swelling noted. Surgical dressing to lower extremity clean, dry, and intact. LABORATORY FINDINGS: White blood cell count 4.2, hemoglobin 12.9, hematocrit 39, platelets 315. Sodium 134, potassium 4.0, chloride 101, carbon dioxide 25, BUN 8, creatinine 0.65, glucose 100, phos 3.2, and 2.0. DIAGNOSTIC FINDINGS: There are no diagnostic findings to report. ASSESSMENT: 1. Status post mechanical fall from standing. 2. Right tib-fib fracture, status post repair. 3. Hypophosphatemia. 4. Constipation, resolved. 5. Hyponatremia, persistent. 6. Acute traumatic pain. PLAN: The patient will receive phosphorus replacement today. She can continue her current pain regimen as well as her diet. The family at bedside reporting the patient is doing well and she is ready for discharge. She can likely go to her facility as early as tomorrow. She will continue to receive supportive care as well as physical and occupational therapy at this time. The patient was seen and examined by Dr. Espinal this morning during rounds. Job ID: [id number]
[2019-01-09] MEDS: Melatonin 3 MG TAB PO SCH (20:29)
[2019-01-10 06:50] LABS: Anion Gap 11 mmol/L (10-20); BUN (Urea Nitrogen) 6 mg/dL (9.8-20.1); Calc. Creatinine Clearance 80 mL/min (70-130); Calcium 8.6 mg/dL (7.8-10.44); Carbon Dioxide 23 mmol/L (22-29); Chloride 101 mmol/L (98-107); Estimated GFR-MDRD Greater than 90; Glucose 102 mg/dL (70-105); Magnesium 1.9 mg/dL (1.6-2.6); Phosphorus 3.4 mg/dL (2.3-4.7); Potassium 3.8 mmol/L (3.5-5.1); Sodium 131 mmol/L (136-145)
[2019-01-10] MEDS: Famotidine 20 MG TAB PO SCH (08:25)
[2019-01-10] MEDS: Aspirin 81 mg Enteric Coated Tablet PO SCH (08:27)
[2019-01-10] MEDS: Acetaminophen 325 MG TAB PO PRN (08:28)
[2019-01-10] MEDS: Senokot S 8.6-50 MG TAB PO SCH (10:01)
[2019-01-10] MEDS: Polyethylene Glycol 3350 17 GM Packet PO SCH (10:01)
[2019-01-10 12:17] VITALS: BP 106/68; TEMP 97.4
--- NOTE | 2019-01-10 16:16 | DIS ---
DATE OF ADMISSION: 01/05/2019 DATE OF DISCHARGE: 01/10/2019 ADMISSION DIAGNOSES: Status post ground level fall and right tib-fib fracture. DISCHARGE DIAGNOSES: Status post ground level fall and right tib-fib fracture. CONSULTING PHYSICIAN: Dr. Mac, Orthopedic surgery. PROCEDURES: ORIF of the right tib-fib. HOSPITAL COURSE: Ms. Tapia presented to the emergency department status post mechanical fall from standing when she stepped into a pothole. She has a history of Down syndrome, dementia, and epilepsy. She received an x-ray imaging, which demonstrated a right tib-fib fracture. Dr. Mac with Orthopedic surgery evaluated the patient and took her to the operating room the next day, where she received ORIF of the right tib-fib. Postoperatively, she had uncomplicated course and by the time of discharge, she was tolerating a regular diet. Pain was well controlled. She was urinating without difficulty and had a bowel movement. DISCHARGE DISPOSITION: [facility] facility in [place]. DISCHARGE CONDITION: Satisfactory. PHYSICAL EXAMINATION: VITAL SIGNS: Temperature 97.4, pulse 62, respirations 18, oxygen saturation 100% on room air, and blood pressure 106/68. GENERAL: Alert and well-appearing middle-aged female, sitting up in bed with no signs of acute distress. NEUROLOGIC: Alert and oriented at baseline. Gross motor and sensation intact. HEENT: Pupils equal, round, reactive to light. PULMONARY: No signs of acute distress. Equal chest rise and fall. Lung ramirez clear bilaterally. HEART: Regular rate and rhythm. No murmurs, gallops, or rubs. GASTROINTESTINAL: Abdomen is soft, nontender, nondistended. Positive bowel sounds. EXTREMITIES: Gross motor and sensation intact in all 4 extremities. 2+ pulses in all extremities. No swelling noted. Surgical dressing to lower extremity clean, dry, and intact. DISCHARGE INSTRUCTIONS: The patient was discharged to a [facility] facility on a regular diet with Tylenol and ibuprofen as needed for pain. She is nonweightbearing on the right lower extremity. She is going to receive PT and OT at her [facility] facility. She can have a regular diet. DISCHARGE MEDICATIONS: Include; 1. Tylenol. 2. Aspirin. 3. CBD extract. 4. Famotidine. 5. Ibuprofen. 6. Melatonin. 7. MiraLAX. 8. Senokot. FOLLOWUP APPOINTMENTS: She will follow up with Dr. Mac in 14 days. This is merely a summary of the patient's hospitalization. For full details, please see her medical record in its entirety. Job ID: [id number]
== END 2019-01-10 12:58 | DRG 493 ==
LOC: ERS 10:54 → SURG A 15:49
PROVIDERS: ADMIT Orthopaedic Surgery; ATTEND Orthopaedic Surgery
PROC: 0QSG04Z Reposition Right Tibia with Internal Fixation Device, Open Approach (ICD-10-PCS; principal; 2019-01-06)
PROC: 0QS Lower Bones, Reposition (ICD-10-PCS; 2019-01-06)
DX: S82.301A Unspecified fracture of lower end of right tibia, initial encounter for closed fracture (principal); E87.1 Hypo-osmolality and hyponatremia; S82.831A Other fracture of upper and lower end of right fibula, initial encounter for closed fracture; G89.11 Acute pain due to trauma; E83.39 Other disorders of phosphorus metabolism; E83.42 Hypomagnesemia; F03.90 Unspecified dementia, unspecified severity, without behavioral disturbance, psychotic disturbance, mood disturbance, and anxiety; G40.909 Epilepsy, unspecified, not intractable, without status epilepticus; Q90.9 Down syndrome, unspecified; K59.00 Constipation, unspecified; Z88.1 Allergy status to other antibiotic agents; Z79.899 Other long term (current) drug therapy; Z95.0 Presence of cardiac pacemaker; W17.2XXA Fall into hole, initial encounter
CPT/HCPCS: 29515; 36415; 72192; 76000; 80048; 80053; 83735; 84100; 85025; 93005; 93010; 96372; C1713; G0390; J1100; J1885; J2270; J2405; J2704; J3010; J3475; J3480; J7050; S0028